=== PATIENT | male | born 1980 | race Caucasian/White ===

== ENCOUNTER → 2017-12-29 15:30 | Outpatient (CLI) | payer BC, SELFPAY ==
--- NOTE | 2017-12-29 15:30 | ASPS_PTH ---
PATIENT: ANU CANALES Jr. LOC: [facility] U#:[id number] AGE/SX: 45/M ROOM: RE12/29/[address]: Dr. Shaheed Rodgers MD : 1980 BED: DIS: SPEC #: [id number] RECD: 12/30/17 09:42 STATUS: NILTON DAMIAN #: [id number] NICOLAS: 12/29/17 15:[address]: Shaheed Rodgers DEPT: CYTOLOGY RECD BY: Rajeev Woodruff ENTERED: 12/30/17 10:03 SP TYPE: ASPIRATION OTHR DR: Dr. Stanislav Fink MD Tissues: A - Thyroid gland, NOS B - Thyroid gland, NOS Procedures: Pap Stain (control) Special Stain Group II Cytology Other HEADER OPERATION: Bilateral thyroid FNA PRE-OP DIAGNOSIS: Bilateral thyroid nodules TISSUE SUBMITTED: A ? Right thyroid slides 4, B ? Left thyroid slides 8 DIAGNOSIS CYTOLOGY A. Right thyroid nodule, FNA (smears): Consistent with benign follicular nodule. See cytology study and comment. B. Left thyroid nodule, FNA (smears): Consistent with benign follicular nodule. See cytology study and comment. SJ:rg 12/31/17 COMMENT Correlation with clinical, radiologic findings and appropriate follow up are necessary. CYTOLOGY STUDY Slides are reviewed. A. The specimen is adequate for evaluation. The specimen consists of benign follicular cells. Significant amount of colloid is not seen. B. The specimen is adequate for evaluation. The smears are cellular and consists of numerous clusters of benign follicular cells without significant atypia. Significant amount of colloid is not seen. The findings may represent adenomatoid nodule. CYTOLOGY GROSS A - Received are four smears labeled with the patient's name and designated per the requisition as right thyroid. Submitted for staining. B - Received are eight smears labeled with the patient's name and designated per the requisition as left thyroid. Submitted for staining. 12/30/17 TC:5 CPT: 45944 x2
== END ==
PROVIDERS: Family Provider Family Medicine; PCP Family Medicine; Visit Provider Surgery
DX: E04.2 Nontoxic multinodular goiter (principal)
CPT/HCPCS: 88161; 88313

== ENCOUNTER → 2019-09-01 | Outpatient (CLI) | payer BC, SELFPAY | END | disposition home or self-care (01) | LOC: LAB.FUTURE 11:11 | PROVIDERS: Family Provider Family Medicine; PCP Family Medicine; Referring Provider Family Medicine; Visit Provider Family Medicine | DX: R19.7 Diarrhea, unspecified (principal) | CPT/HCPCS: 87177; 87209; 87493; 87506 ==